=== PATIENT | male | born 1950 | race Caucasian/White ===

== ENCOUNTER 2018-05-30 10:43 | Emergency (ER) | payer MEDICARE ==
[2018-05-30] MEDS ORDERED: Dextrose 5%/0.9% NS 1,000 ML IV STA ×2 (11:06→12:19)
[2018-05-30 11:14] VITALS: RESP 18; TEMP 98.4
--- NOTE | 2018-05-30 11:51 | ED PDOC ---
Arrival/HPI - General Chief Complaint: Altered Mental Status Time Seen by Provider: 05/30/18 11:02 Historian: Patient, Family (Daughters) - History of Present Illness Narrative History of Present Illness (Text): 05/30/18 11:02 Ade Miranda is a 67 year old male, with a past medical history of TIA, diabetes (on febuvia), hypertension, hypokalemia, and hypocalcemia, brought to the emergency department by EMS for altered mental status earlier today. Per daughters, patient was awake but unresponsive and unable to respond to que stions. Patient noted dizziness. Upon EMS arrival, blood sugar read 38. Blood sugar read as 227 s/p administration of 1 amp of D50; 18 g placed to left hand. EMS noted bed bugs; pt was taken to shower upon arrival to ED. Patient denies any history of current complaints. Patient states he feels better and denies dizziness in the ED. Daughters inform patient takes memantine. Patient informs taking blood pressure medication to regulate low potassium and calcium levels. Patient denies fevers, chills, night sweats, vision changes, headache, shortness of breath, cough, chest pain, abdominal pain, diarrhea, nausea, vomiting, dysuria, hematuria, back pain, neck pain, rash, diaphoresis, or any other complaint. Symptom Onset: Sudden Symptom Course: Improving Activities at Onset: Light Context: Home Past Medical History - Provider Review Nursing Documentation Reviewed: Yes - Cardiac Hx Hypertension: Yes - Neurological Hx Transient Ischemic Attacks (TIA): Yes Other/Comment: cerebral palsy - Endocrine/Metabolic Hx Diabetes Mellitus Type 1: Yes - Psychiatric Hx Substance Use: No Family/Social History - Physician Review Nursing Documentation Reviewed: Yes Family/Social History: Unknown Family HX Smoking Status: Unknown If Ever Smoked Hx Alcohol Use: No Hx Substance Use: No Allergies/Home Meds Allergies/Adverse Reactions: Allergies No Known Allergies Allergy (Verified 05/30/18 10:47) Review of Systems - Review of Systems Constitutional: Other (altered mental status). absent: Fevers, Night Sweats Eyes: absent: Vision Changes Respiratory: absent: SOB, Cough Cardiovascular: absent: Chest Pain Gastrointestinal: absent: Abdominal Pain, Diarrhea, Nausea, Vomiting Genitourinary Male: absent: Dysuria, Hematuria Musculoskeletal: absent: Back Pain, Neck Pain Skin: absent: Rash Neurological: Dizziness. absent: Headache Endocrine: absent: Diaphoresis Physical Exam Vital Signs Reviewed: Yes Vital Signs Temp Pulse Resp BP Pulse Ox 05/30/18 11:13 98.4 F 84 18 141/71 99 Temperature: Afebrile Blood Pressure: Normal Pulse: Regular Respiratory Rate: Normal Appearance: Positive for: Well-Appearing, Non-Toxic, Comfortable Pain Distress: None Mental Status: Positive for: Alert and Oriented X 3 Finger Stick Blood Glucose: 84 - Systems Exam Head: Present: Atraumatic, Normocephalic Pupils: Present: PERRL Extroacular Muscles: Present: EOMI Conjunctiva: Present: Normal Mouth: Present: Moist Mucous Membranes Neck: Present: Normal Range of Motion Respiratory/Chest: Present: Clear to Auscultation, Good Air Exchange. No: Respiratory Distress, Accessory Muscle Use, Wheezes, Rales, Rhonchi Cardiovascular: Present: Regular Rate and Rhythm, Normal S1, S2. No: Murmurs, Rub, Gallop Abdomen: Present: Distention (slightly distended), Normal Bowel Sounds, Hernias (slight umbillical hernia; reducible). No: Tenderness, Peritoneal Signs, Rebound, Guarding Back: Present: Normal Inspection Upper Extremity: Present: Normal Inspection, Normal ROM, NORMAL PULSES, Neurovascularly Intact, Capillary Refill < 2s. No: Cyanosis, Edema Lower Extremity: Present: Normal Inspection, NORMAL PULSES, Normal ROM, Neurovascularly Intact, Capillary Refill < 2 s. No: Edema Neurological: Present: CN II-XII Intact, Speech Normal, Motor Func Grossly Intact, Normal Sensory Function Skin: Present: Warm, Dry, Normal Color. No: Rashes Psychiatric: Present: Alert, Oriented x 3, Normal Insight, Normal Concentration Medical Decision Making ED Course and Treatment: 05/30/18 11:02 Impression: 67 year old male brought to the emergency department by EMS for altered mental status earlier today. Plan: -- Labs -- Chest X-Ray -- Dextrose --Calcium gluconate gtt --Magnesium gtt -- Urine Culture -- IV Fluids -- Urinalysis -- Reassess and disposition Prior Visits: Notes and results from previous visits were reviewed. Progress Notes: 05/30/18 11:55 Blood sugar reads 56 s/p IV drip. Dextrose ordered. Labs reviewed with calcium noted to be low. Calcium gluconate as well as magnesium drip ordered. 05/30/18 15:22 Patient states he feels better and would like to go home. He is noted to be tolerating PO without difficulty. Repeat finger stick glucose is 136. Lengthy discussion regarding the need for medication reconciliation performed with PCP as well as to half Januvia dose given to patient with daughters present. Patient and daughters demonstrates understanding and will follow up. They are stable for discharge. - Lab Interpretations Lab Results: 05/30/18 11:54 05/30/18 11:54 Lab Results 05/30/18 11:54: Sodium 144, Potassium 4.4, Chloride 105, Carbon Dioxide 25, Anion Gap 18, BUN 26 H, Creatinine 1.3, Est GFR ( Amer) > 60, Est GFR (Non-Af Amer) 55, Random Glucose 62 L, Calcium 6.2 L*, Total Bilirubin 0.7, AST 27, ALT 14, Alkaline Phosphatase 65, Troponin I < 0.01, NT-Pro-B Natriuret Pep 141, Total Protein 8.1, Albumin 4.7, Globulin 3.4, Albumin/Globulin Ratio 1.4, Lipase 167 05/30/18 11:54: PT 13.0 H, INR 1.15, APTT 33.9 05/30/18 11:54: WBC 7.3, RBC 4.98, Hgb 13.9 L, Hct 41.8 L, MCV 83.9, MCH 27.9, MCHC 33.3, RDW 13.5, Plt Count 184, MPV 9.8, Neut % (Auto) 83.1 H, Lymph % (Auto) 11.2 L, [place] % (Auto) 5.1, Eos % (Auto) 0.5 L, Baso % (Auto) 0.1, Lymph # (Auto) 0.8 L, [place] # (Auto) 0.4, Eos # (Auto) 0.0, Baso # (Auto) 0.01, Absolute Neuts (auto) 6.05 05/30/18 11:52: POC Glucose (mg/dL) 56 L 05/30/18 11:07: POC Glucose (mg/dL) 83 I have reviewed the lab results: Yes - RAD Interpretation Narrative RAD Interpretations (Text): 05/30/18 13:42 Chest X-Ray shows: IMPRESSION: No active disease. Radiology Orders: 05/30/18 11:05 CHEST PORTABLE [RAD] Stat Fleet Assistant: Radiologist - EKG Interpretation EKG Interpretation (Text): 05/30/18 11:08 Reviewed EKG, shows: NSR at [address] elevations. Interpreted by ED Physician: Yes Type: 12 lead EKG - Medication Orders Current Medication Orders: Dextrose/Sodium Chloride (Dextrose 5%/0.9% Ns 1000 Ml) 1,000 mls @ 150 mls/hr IV .[id number] STA Stop: 05/30/18 17:45 Last Admin: 05/30/18 11:34 Dose: 150 mls/hr eMAR Start Stop Document 05/30/18 11:34 BB (Rec: 05/30/18 11:35 BB [id number]) Intravenous Solution Start Date 05/30/18 Start Time 11:35 - Scribe Statement The provider has reviewed the documentation as recorded by the Scribe Domingo Diop All medical record entries made by the Scribe were at my direction and personally dictated by me. I have reviewed the chart and agree that the record accurately reflects my personal performance of the history, physical exam, medical decision making, and the department course for this patient. I have also personally directed, reviewed, and agree with the discharge instructions and disposition. Disposition/Present on Arrival - Present on Arrival Any Indicators Present on Arrival: Yes History of DVT/PE: No History of Uncontrolled Diabetes: Yes Urinary Catheter: No History of Decub. Ulcer: No History Surgical Site Infection Following: None - Disposition Have Diagnosis and Disposition been Completed?: Yes Diagnosis: Hypoglycemia, Hypocalcemia Disposition: HOME/ ROUTINE Disposition Time: 15:34 Patient Plan: Discharge Condition: IMPROVED Discharge Instructions (ExitCare): Low Blood Sugar, Adult (DC), Hypocalcemia (DC) Print Language: [place] Additional Instructions: All medical record entries made by the Scribe were at my direction and personally dictated by me. I have reviewed the chart and agree that the record accurately reflects my personal performance of the history, physical exam, medical decision making, and the department course for this patient. I have also personally directed, reviewed, and agree with the discharge instructions and disposition. Please follow up with your PCP early next week for medication reconciliation to determine if there is any medication changes needed Please call your pharmacy to obtain a comprehensive list of medications to bring along with you to your PCP Please take half of your dose of Januvia until you are able to see your PCP Referrals: Liz Manuel MD [Primary Care Provider] - Follow up with primary Radha Gonzalez MD [Medical Doctor] - Follow up with primary Medhat Clifford MD [IM] - Follow up with primary Gerri Carter PA [Physician Assembler Body] - Follow up with primary Forms: [employer] (German)
[2018-05-30] MEDS ORDERED: Dextrose 50% SYRINGE Inj (50 ml) IVP STA (11:55)
[2018-05-30 12:12] LABS: BASO # 0.01 K/mm3 (0.0-2.0); BASO % 0.1 % (0.0-3.0); EOS % 0.5 % (1.5-5.0); HEMOGLOBIN 13.9 g/dL (14.0-18.0); LYMPH # 0.8 (1.2-3.4); LYMPH % 11.2 % (22.0-35.0); MEAN CELL VOLUME 83.9 fl (80.0-105.0); MEAN CORPUSCULAR HEMOGLOBIN 27.9 pg (25.0-35.0); MEAN CORPUSCULAR HGB CONC 33.3 g/dl (31.0-37.0); MEAN PLATELET VOLUME 9.8 fl (7.0-11.0); MONO # 0.4 (0.1-0.6); MONO % 5.1 % (1.0-6.0); RBC 4.98 10^6/uL (3.5-6.1); RED CELL DISTRIBUTION WIDTH 13.5 % (11.5-14.5); WHITE BLOOD COUNT 7.3 10^3/uL (4.5-11.0)
[2018-05-30 12:19] LABS: ALT/SGPT 14 U/L (7-56); AST/SGOT 27 U/L (17-59)
[2018-05-30 12:21] LABS: INR 1.15; PARTIAL THROMBOPLASTIN TIME 33.9 Seconds (26.9-38.3)
[2018-05-30 12:23] LABS: B-TYPE NATRIURETIC PEPTIDE 141 pg/mL (0-450); GFR NON-AFRICAN AMERICAN 55; TROPONIN I < 0.01 ng/mL
[2018-05-30 12:24] LABS: ALB/GLOB RATIO 1.4 (1.1-1.8); ALBUMIN 4.7 g/dL (3.0-4.8); BLOOD UREA NITROGEN 26 mg/dL (7-21); CALCIUM 6.2 mg/dL (8.4-10.5); LIPASE 167 U/L (23-300)
[2018-05-30] MEDS ORDERED: Magnesium Sulfate 1 gm in D5W 1 GM/100 ML BAG IVPB ONE (12:30)
--- NOTE | 2018-05-30 12:43 | RAD ---
Date of service: 05/30/2018 HISTORY: Hypoglycemia. COMPARISON: No prior. FINDINGS: LUNGS: No active pulmonary disease. PLEURA: No significant pleural effusion identified, no pneumothorax apparent. CARDIOVASCULAR: No atherosclerotic calcification present No radiographic findings to suggest acute or significant cardiovascular disease. OSSEOUS STRUCTURES: No significant abnormalities. VISUALIZED UPPER ABDOMEN: Normal. OTHER FINDINGS: None. IMPRESSION: No active disease.
[2018-05-30 15:42] VITALS: BP 144/66; PULSE 75; O2SAT 98
--- NOTE | 2018-05-30 17:14 | CARD ---
APPROVED REPORT Date of service: 05/30/2018 EKG Measurement Heart [id number] <Conclusion> Normal sinus rhythm Moderate voltage criteria for LVH, may be normal variant Borderline ECG
== END 2018-05-30 16:18 | disposition home or self-care (01) ==
LOC: ED 10:43
DX: E10.649 Type 1 diabetes mellitus with hypoglycemia without coma (principal); Z79.84 Long term (current) use of oral hypoglycemic drugs; E83.51 Hypocalcemia; I10 Essential (primary) hypertension; G80.9 Cerebral palsy, unspecified; Z86.73 Personal history of transient ischemic attack (TIA), and cerebral infarction without residual deficits
CPT/HCPCS: 71045; 80053; 82948; 83690; 83880; 84484; 85025; 85610; 85730; 93005; 96374; 96375; 99285; J0610; J3475; J7042